=== PATIENT | male | born 2000 | race Caucasian/White ===

== ENCOUNTER 2024-08-09 21:10 | Emergency (ER) | payer OTHER ==
[~2024-08-09] VITALS: Ht 177.8 cm; Wt 89.0 kg
[2024-08-09] MEDS: LIDOCAINE 2% MDV 20ML VIAL SC ONE (21:55)
[2024-08-09] MEDS ORDERED: LIDOCAINE 2% MDV 20ML VIAL As Ordered ONE (21:56)
[2024-08-09] MEDS: NEOSPORIN OINT 0.9 GM PKT TOP ONE (22:22)
[2024-08-09 22:37] VITALS: BP 141/78; TEMP 98.3; O2SAT 99
== END 2024-08-09 22:38 | disposition home or self-care (01) ==
LOC: M ED 21:10
DX: S01.81XA Laceration without foreign body of other part of head, initial encounter (principal); W01.198A Fall on same level from slipping, tripping and stumbling with subsequent striking against other object, initial encounter; Y92.828 Other wilderness area as the place of occurrence of the external cause; Y93.23 Activity, snow (alpine) (downhill) skiing, snowboarding, sledding, tobogganing and snow tubing; Y99.9 Unspecified external cause status